=== PATIENT | male | born 1975 | race Caucasian/White ===

== ENCOUNTER 2016-08-28 11:28 | Emergency (ER) | payer OTHER ==
[~2016-08-28] VITALS: Ht 182.9 cm; Wt 80.0 kg
[2016-08-28 11:48] VITALS: Ht 182.9 cm; Wt 80.0 kg
[2016-08-28] MEDS ORDERED: KETOROLAC 30 MG INJ IM STA (14:34)
--- NOTE | 2016-08-28 15:05 | ERD ---
ER Documentation Chief Complaint Date/Time DATE: 08/28/16 TIME: 15:01 Chief Complaint LEFT KNEE PAIN X 2 WEEKS NO FALL OR INJURY PER PT HPI This is a 41-year-old male presenting to the emergency department for left knee pain and swelling 3 weeks. Patient has limited range of motion due to pain. No fall or injury. Patient has not had pain here before. No fevers or chills. No redness to knee or leg. Denies numbness or tingling. No loss of sensation. No calf swelling or tenderness. ROS All systems reviewed and are negative except as per history of present illness. Medications Home Meds Active Scripts Ibuprofen* (Motrin*) 800 Mg Tab, 800 MG PO Q6, #20 TAB Prov:RAHUL HERRERA DRAINAGE ENGINEER 08/28/16 PMhx/Soc Medical and Surgical Hx: pt denies Surgical Hx Anesthesia Reaction: No Hx Neurological Disorder: No Hx Respiratory Disorders: No Hx Cardiac Disorders: No Hx Psychiatric Problems: No Hx Miscellaneous Medical Probl: No Hx Alcohol Use: Yes (SOCIALLY) Hx Substance Use: No Hx Tobacco Use: No Smoking Status: Never smoker Physical Exam Vitals Vital Signs Date Time Temp Pulse Resp B/P Pulse Ox O2 Delivery O2 Flow Rate FiO2 08/28/16 16:37 98.1 62 18 138/77 97 Room Air 08/28/16 11:48 98.1 90 18 141/77 96 Physical Exam Const: Alert, [id number] Head: Atraumatic Eyes: Normal Conjunctiva ENT: Normal External Ears, Nose and Mouth. Neck: Full range of motion..~ No meningismus. Resp: Clear to auscultation bilaterally Cardio: Regular rate and rhythm, no murmurs Abd: Soft, non tender, non distended. Normal bowel sounds Skin: No petechiae or rashes Back: No midline or flank tenderness Ext: mild swelling to lateral and medial aspect of left knee. Limited extension and flexion. no laceration or erythema. no rashes or skin changes noted. Neur: Awake and alert Psych: Normal Mood and Affect Results 24 hrs Current Medications Medications (Trade) Dose Ordered Sig/Anna Route PRN Reason Start Time Stop Time Status Last Admin Dose Admin Ketorolac Tromethamine (Toradol) 30 mg ONCE STAT IM 08/28/16 14:34 08/28/16 14:36 DC 08/28/16 14:39 Procedures/MDM ED COURSE: The patient was stable throughout ED course. I kept the patient and/or family informed of laboratory and diagnostic imaging results throughout the ED course. Toradol given Imaging X-ray left knee Patient: JANNETH ORTIZ : 1975 Age: 41 Sex: M MR #: [id number] DOS: 08/28/16 1434 Ordering MD: RAHUL HERRERA NP Location: [facility] Room/Bed: PROCEDURE: CR Left Knee CLINICAL INDICATION: Knee pain, swelling TECHNIQUE: An AP, lateral and a tunnel view were submitted. COMPARISON: None FINDINGS: Osseous Structures: The osseous elements appear well mineralized and intact. There is a small traction spur extending superiorly off the anterior superior patella. Joint Spaces: The joint spaces are well maintained. There is a small joint effusion. Soft Tissues: The soft tissues appear unremarkable. IMPRESSION: 1. Small traction spur extending off the anterior superior patella. 2. Small joint effusion 3. Otherwise, unremarkable left knee. MDM: This is a 41-year-old male presenting to the emergency department for left knee pain and swelling 3 weeks. No injury or fall per patient. No fevers or chills. Toradol given while in ED. X-ray left knee reviewed by radiologist as small traction spur extending off the anterior superior patella. Small joint effusion. Otherwise, unremarkable left knee. Patient states pain is improved after Toradol administration. Patient was placed in kristi wrap and a knee immobilizer. Patient remains neurovascularly intact pre-and post splint application. No loss of sensation. Denies numbness or tingling. No calf pain or swelling. No fevers or chills. Low suspicion for acute dislocation, fracture, cellulitis, septic arthritis , compartment syndrome or DVT. Patient's diagnosis is knee pain. Patient is appropriate for outpatient management will be given prescription for ibuprofen instructed patient to follow-up with primary care provider in the next 24-48 hours for reassessment and additional management. Instructed patient may need orthopedic referral if symptoms persist. Return to ED for any high fever, chest pain, difficulty breathing, shortness breath, wheezing, vomiting, diarrhea, abdominal pain or any new or worsening symptoms. Patient verbalizes understanding. All questions answered at discharge. French translation use during this encounter. Departure Diagnosis: Primary Impression: Knee pain Laterality: left Chronicity: acute Qualified Code: M25.562 - Acute pain of left knee Condition: Stable RAHUL HERRERA NP Aug 28, 2016 15:05
--- NOTE | 2016-08-28 15:06 | RADRPT ---
PROCEDURE: CR Left Knee CLINICAL INDICATION: Knee pain, swelling TECHNIQUE: An AP, lateral and a tunnel view were submitted. COMPARISON: None FINDINGS: Osseous Structures: The osseous elements appear well mineralized and intact. There is a small tracti on spur extending superiorly off the anterior superior patella. Joint Spaces: The joint spaces are well maintained. There is a small joint effusion. Soft Tissues: The soft tissues appear unremarkable. IMPRESSION: 1. Small traction spur extending off the anterior superior patella. 2. Small joint effusion 3. Otherwise, unremarkable left knee. Physician Juaquin Date Time Electronically viewed and signed by Physician Juaquin on 08/28/2016 15:06 /
[2016-08-28] MEDS ORDERED: IBUP800T25 PO (16:21)
[2016-08-28 16:37] VITALS: BP 138/77; PULSE 62; RESP 18; TEMP 98.1
== END 2016-08-28 16:38 | disposition home or self-care (01) ==
LOC: FTE 11:28
DX: M25.562 Pain in left knee (principal)
CPT/HCPCS: 29505; 73562; 96372; J1885; Z7502

== ENCOUNTER → 2016-10-06 | Outpatient (CLI) | payer OTHER ==
[~2016-10-06] MED LIST: IBUP800T25 PO
--- NOTE | 2016-10-07 00:40 | HKNOTE ---
DATE OF SERVICE: 10/06/2016 REFERRING PHYSICIAN: Dr. Lorenzo Donis, [address], [address], [facility] [place] [id number]. MAIN COMPLAINT: Pain in the left knee. HISTORY OF MAIN COMPLAINT: The patient is a 41-year-old male who complains that he twisted his knee about 1-1/2 months ago while walking along and had some pain in the knee. He has had symptoms in t he knee since then. 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 Dr. Lorenzo Donis ordered an MRI scan of the left knee. The MRI w [facility] was obtained on 09/22/2016 reports as follows: "Small focus of high-grade chondral fissuring w ithin the medial eminence of the patella. Sprain versus mild mucoid degeneration of the anterior cr uciate ligament. Mild patellar tendinosis. Moderately large effusion. No discrete meniscal tear. PRESENT COMPLAINTS: The patient has constant pain in his knee. The knee feels unstable. He is not able to straighten it all the way, difficult for him to bear weight on the leg. He has been taking tramadol for the pain. He uses a cane or crutches almost all the time. He limps all the time. He can clip his toenails an d tie his shoelaces but with difficulty on the left side. PAST ORTHOPEDIC HISTORY: No previous orthopedic operations. PRIOR CORTISONE INTAKE: None. ALCOHOL INTAKE: An occasional beverage. OTHER JOINT PROBLEMS: None. BLOOD TESTS FOR ARTHRITIS: None. PRIOR INJURIES TO HIPS OR KNEES: None. WORK STATUS: The patient is a cook. PAST MEDICAL HISTORY: Hypertension. PAST SURGICAL HISTORY: Negative. MEDICAL ALLERGIES: NONE. MEDICATIONS: 1. Gemfibrozil 600 mg twice a day for hypercholesterolemia. 2. Glipizide 5 mg twice a day for diabetes. 3. Januvia 50 mg daily for diabetes. 3. Tramadol 50 mg twice a day for pain. FAMILY HISTORY: Noncontributory. Both parents are alive and well. SYSTEMS REVIEW: Gait disturbance, otherwise negative. HABITS: The patient has smoked in the past. Currently he drinks occasional alcoholic beverage. PHYSICAL EXAMINATION: GENERAL: The patient is a fit-looking and youthful 41-year-old male. He speaks no Arabic. He com es in with his Radha, who translates for him. GAIT: The patient walks with a pair of crutches. He has a marked antalgic gait without the crutche s. He walks on his tiptoe. VITAL SIGNS: Height 6 feet. Weight 210 pounds. Blood pressure 125/75, temperature 97.5. HIPS: Both hips have a full range of motion without pain. LEFT KNEE: The left knee shows normal alignment. Active and passive extension is 0 degrees. Active and passive flexion lacks 25 degrees. Tender over the medial joint line. The medial and lateral nimesh ateral ligaments and cruciate ligaments are intact. Sharmaine test is negative. There is 3+ effusion, pain on forced extension. There is no scarring, crepitus or cysts. The patella tracks normally. The re is no tenderness on the articular surface of the patella or in the patellar groove. The Q angle i s normal. RIGHT KNEE: The right knee shows normal alignment. Active and passive extension is 0 degrees. Activ e and passive flexion is 135 degrees. The medial and lateral collateral ligaments and cruciate ligam ents are intact. Sharmaine test is negative. There is no effusion, tenderness, scarring, crepitus, or cysts. The patella tracks normally. There is no tenderness on the articular surface of the patella o r in the patellar groove. The Q angle is normal. IMAGING: Plain x-rays of his right knee obtained today at the [facility] are ent irely normal. An MRI scan of the right knee obtained at [facility] on 09/22/[address] Vanesa Rucker as showin. "Small high-grade chondral fissuring of the patella. 2. Sprain versus mucoid degeneration of the anterior cruciate ligament. 3. Mild patellar tendinosis. 4. Moderate to large joint effusion. 5. Mild semimembranosus bursitis. 6. No discrete meniscal tear." MANAGEMENT: Under sterile conditions, the knee was aspirated of 80 mL of clear yellow fluid which w as not sent to the lab since there did not appear to be an indication to do so. As part of the aspiration, his knee was injected with 5 mL of 2% lidocaine. Thereafter, he had abso lutely no pain in the knee, but it was mechanically impossible to extend his knee. He has a lack of approximately 10 degrees of extension even without pain. DISCUSSION: The patient and his were advised that although the MRI scan does not show a torn m eniscus, his presentation, symptoms and clinical findings clearly indicate that he almost certainly has a torn meniscus. I advised that the MRI scan has a 5% chance of missing significant pathology or a 5% chance of seein g pathology that is not there. MANAGEMENT: The patient is advised that he will definitely need to have an arthroscopic operation o f the knee. It has been about 6 weeks now that he has been totally incapacitated. The operations and major possible complications were discussed with him and his in a fair amoun t of detail. FINAL DIAGNOSES: 1. Internal derangement of the left knee, probably a torn meniscus. 2. Hypertension. 3. Hypercholesterolemia. 4. Diabetes. The patient will need to have authorization for the surgery from his HMO. His Radha will be called as soon as authorization is received. Dictated By: NIELS LU/OBED Conf#: [id number] DID#: [id number]
== END | disposition home or self-care (01) ==
LOC: HKI 14:10
DX: M23.92 Unspecified internal derangement of left knee (principal); I10 Essential (primary) hypertension; E78.00 Pure hypercholesterolemia, unspecified; E11.9 Type 2 diabetes mellitus without complications
CPT/HCPCS: 20610; Z7500; Z7610; G0463

== ENCOUNTER → 2016-11-10 | Outpatient (CLI) | payer OTHER ==
[~2016-11-10] MED LIST changes: +GEMF600T PO; +GLIP-173 PO; +METF1000 PO
--- NOTE | 2016-11-11 05:56 | HKNOTE ---
DATE OF SERVICE: 11/10/2016 The patient comes in for preoperative evaluation. He is scheduled to have operative arthroscopy on his left knee on 11/11/2016. He continues to have very significant symptoms in his knee highly sugg estive of a torn meniscus. The MRI scan of his knee does not report clearly that there is a torn me niscus or any other explanation for his knee problem. He does not speak a word of Wolof. He comes in with his (? sister) who translates for him. I explained to both of them that there is a good chance that he may not be improved at all by the ar throscopic surgery. He has been cleared for surgery by Dr. Lorenzo Donis. Dictated By: NIELS LU/OBED Conf#: [id number] DID#: [id number]
== END | disposition home or self-care (01) ==
LOC: HKI 13:57
DX: Z01.818 Encounter for other preprocedural examination (principal); M25.562 Pain in left knee
CPT/HCPCS: G0463

== ENCOUNTER 2016-11-11 08:57 | Day surgery (SDC) | payer OTHER ==
[~2016-11-11] VITALS: Ht 185.4 cm; Wt 92.0 kg
[2016-11-11] VITALS (18 sets, daily range): BP systolic 99–146; BP diastolic 57–85; PULSE 80–106; RESP 10–20; Ht 185.4 cm; Wt 92.0 kg
[~2016-11-11 08:57] MED LIST changes: -GEMF600T PO; -GLIP-173 PO; -METF1000 PO
[2016-11-11] MEDS ORDERED: METF1000 PO (10:21)
[2016-11-11] MEDS ORDERED: GLIP-173 PO (10:21)
[2016-11-11] MEDS ORDERED: GEMF600T PO (10:21)
[2016-11-11] MEDS ORDERED: oxyCODONE (CR) 10 MG TAB [oxyCONTIN] PO ONE (10:30)
[2016-11-11] MEDS ORDERED: CELECOXIB 200 MG CAP PO ONE (10:30)
[2016-11-11] MEDS ORDERED: LANSOPRAZOLE 30 MG CAP PO ONE (10:30)
[2016-11-11] MEDS ORDERED: LACTATED RINGER'S 1,000 ML IV* SCH (10:30)
[2016-11-11] MEDS ORDERED: ACETAMINOPHEN 1000MG/100ML IV 100 ML IVPB ONE (10:30)
[2016-11-11] MEDS ORDERED: VANCOMYCIN 1 GM (PMX) 250 ML IVPB ONE (10:30)
[2016-11-11] MEDS ORDERED: ONDANSETRON 4 MG INJ IV ONE (10:30)
[2016-11-11] MEDS ORDERED: DEXAMETHASONE 4 MG/ML 1 ML INJ IV ONE (10:30)
[2016-11-11] MEDS ORDERED: EPHEDrine SULFATE 50 MG/5 ML SYG IV PRN (11:30)
[2016-11-11] MEDS ORDERED: METOCLOPRAMIDE 10 MG INJ IV PRN (11:30)
[2016-11-11] MEDS ORDERED: MEPERIDINE 25 MG INJ IV PRN (11:30)
[2016-11-11] MEDS ORDERED: ONDANSETRON 4 MG INJ IV PRN ×2 (11:30→13:30)
[2016-11-11] MEDS ORDERED: DIPHENHYDRAMINE 50 MG INJ IV PRN (11:30)
[2016-11-11] MEDS ORDERED: HYDROmorphONE (0.2 MG/ML) 10ML SYG IV PRN ×2 (11:30)
[2016-11-11] MEDS ORDERED: MIDAZOLAM 1 MG/ML 2 ML INJ IV PRN (11:30)
[2016-11-11] MEDS ORDERED: FENTAnyl 50 MCG/ML VIAL IV PRN ×2 (11:30)
[2016-11-11] MEDS ORDERED: LABETALOL HCL 20MG INJ IV PRN (11:30)
[2016-11-11] MEDS ORDERED: hydrALAzine 20 MG INJ IV PRN (11:30)
[2016-11-11] MEDS ORDERED: KETOROLAC 30 MG INJ ONE (11:37)
[2016-11-11] MEDS ORDERED: ROPIVACAINE 0.5 % 30 ML VIAL ONE (11:37)
[2016-11-11] MEDS ORDERED: morphine SULFATE/PF (10 MG/10 ML) INJ ONE (11:37)
[2016-11-11] MEDS ORDERED: BUPIVACAINE 0.25%/EPI (SDV) 30 ML INJ ONE (11:37)
--- NOTE | 2016-11-11 11:37 | HPN ---
Date/Time of Note Date/Time of Note DATE: 11/11/16 TIME: 11:37 Interval H&P Admission Note Pt. seen H&P reviewed: No system changes HYACINTH SUAREZ PA-C Nov 11, 2016 11:37
[2016-11-11] MEDS ORDERED: LIDOCAINE 2% (SDV) 5 ML INJ ONE (11:50)
[2016-11-11] MEDS ORDERED: MEPERIDINE 100 MG INJ ONE (11:50)
[2016-11-11] MEDS ORDERED: PROPOFOL 20 ML ONE (11:50)
[2016-11-11] MEDS ORDERED: morphine 10 MG INJ IV PRN (13:30)
[2016-11-11] MEDS ORDERED: ACETAMINOPHEN 1000MG/100ML IV 100 ML IVPB SCH (13:30)
[2016-11-11] MEDS ORDERED: HYDROCODONE/APAP (5/325) TAB PO PRN ×2 (13:30)
[2016-11-11] MEDS ORDERED: HYDROCODONE/APAP (10/325) TAB PO PRN (13:30)
--- NOTE | 2016-11-11 15:55 | OPR ---
DATE OF OPERATION: 11/11/2016 SURGEON: Darrick Cope MD. OCCUPATIONAL THERAPY TECHNICIAN: YOSELIN SALAS. ANESTHESIOLOGIST: Dr. Pak. PREOPERATIVE DIAGNOSIS: Internal derangement of the left knee. POSTOPERATIVE DIAGNOSES: 1. Hypermobile medial meniscus 2. Tear of the posterior horn of the lateral meniscus. 3. Softening articular cartilage of the lateral tibial plateau. 4. Prior bleeding into the knee. PROCEDURE 1. Diagnostic arthroscopy. 2. Partial medial meniscectomy. 3. Partial lateral meniscectomy. FINDINGS AT SURGERY: The patient was found to have a evidence of previous hemarthrosis throughout t he knee. The soft tissues were all stained a brownish color to suggest that there has been recurren t hemarthrosis in the knee. Some of the articular cartilage itself was stained the same color. The medial meniscus was intact and normal, except for hypermobility. The lateral meniscus showed a tear of the extreme posterior horn. The lateral tibial plateau showed quite marked softening throug h the knee and so I inserted a probe through the articular cartilage. The cruciate ligaments were i ntact. The joint surfaces otherwise appeared relatively normal. DISCUSSION: This patient was admitted for a diagnostic arthroscopy. He had significant symptoms in his knee including locking and instability. An MRI scan of the knee did not show any pathology juliano t might cause knee symptoms and I felt fairly certain that we would find significant tears of the me dial and lateral meniscus causing symptoms. It was surprising that we did not find any major pathol ogy other than what is mentioned above. DESCRIPTION OF PROCEDURE: Under general anesthetic, the left knee was prepared and draped in the [facility] sterile fashion. Standard inferomedial and inferolateral portals were used. The knee was syste matically inspected and the above findings were noted. Using a variety of basket forceps and motori Kochzauberd intraarticular shaver, a partial medial meniscectomy was performed. The camera was moved throug h the middle of the knee. The cruciate ligaments were noted to be intact to the lateral compartment . A partial lateral meniscectomy was performed on the extreme posterior horn of the lateral meniscu s. At the end of procedure, the knee was copiously irrigated to remove contained fragments. The wo unds were then closed with interrupted nylon and the usual sterile dressings were applied. The alexandra ent returned to recovery room in stable condition. Dictated By: DARRICK LU/OBED Conf#: [id number] [facility]#: [id number]
--- NOTE | 2016-11-13 08:16 | PREOPHP ---
DATE OF ADMISSION: 11/11/2016 This preop is for this 41-year-old patient whose preop is for elective left knee arthroscopy sched ed. HISTORY OF PRESENT ILLNESS: The history of the patient is the patient sustained an injury to his le ft knee approximately 2-1/2 to 3 months ago with subsequent swelling and pain and limited mobility o f his left knee. REVIEW OF SYSTEMS: Upon presentation are negative with the exception of a left knee swelling and pa in with increased swelling with standing or walking. PREOPERATIVE PHYSICAL EXAMINATION: VITAL SIGNS: Upon presentation, blood pressure is 120/80, pulse 88, temperature 97.3, weight is 207 pounds. GENERAL: His overall appearance, he is a well-developed, well-nourished male in no apparent distres s. HEENT: Within normal limits. LUNGS: Clear anterior and posteriorly. HEART: Regular rate and rhythm. S1, S2 without any gallop or murmur. ABDOMEN: Soft, nontender. There is no organomegaly present. MUSCULOSKELETAL: His left knee is swollen and has limited flexion and extension upon examination. INITIAL PREOPERATIVE LABORATORY DATA: That are available: His EKG is within normal limits. His pr eop chest x-ray is normal. There is no acute abnormality present. With this information gathered for his current preop history and physical, the patient is cleared fo r the scheduled left knee arthroscopy. Lab work is pending. That should be available prior to the scheduled surgery. SAAD GAMA DICTATING FOR NIELS GUZMAN. Dictated By: NIELS LU/OBED Conf#: [id number] DID#: [id number]
== END 2016-11-11 16:30 | disposition home or self-care (01) ==
LOC: SDS 08:57
DX: M23.252 Derangement of posterior horn of lateral meniscus due to old tear or injury, left knee (principal); M23.204 Derangement of unspecified medial meniscus due to old tear or injury, left knee; E11.9 Type 2 diabetes mellitus without complications; I10 Essential (primary) hypertension; E78.5 Hyperlipidemia, unspecified
CPT/HCPCS: 29880; 82962; J0131; J1100; J1885; J2175; J2274; J2405; J2795; J3370; J7120; Z7512; Z7610

== ENCOUNTER → 2016-11-15 | Outpatient (CLI) | payer OTHER ==
[~2016-11-15] MED LIST changes: +GEMF600T PO; +GLIP-173 PO; +METF1000 PO
--- NOTE | 2016-11-16 06:07 | HKNOTE ---
DATE OF SERVICE: 11/15/2016 SUBJECTIVE: The patient comes in for a wound check. He comes in with his who speaks Taiwanese. The patient himself does not speak any Taiwanese at all. 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 He has not be en able to work since these problems started with his knee. His work involves a great deal of his s tanding and walking. He pain is somewhat improved since the surgery. His wounds are clean and healing well. His temperature is normal. The findings at surgery were discussed with the patient and his using my zoning assistant Sandra as a auto collision repair instructor. The patient is advised that there is evidence of old bleeding into the knee. There was hypermobile medial meniscus and a small tear of the lateral meniscus. It is difficult to determine how these diagnoses all combine to cause him as much trouble with his knee as he had. All told, I am not sure that we have done him any good or improved his situation or been helpful in determining the exact cause of his problems. The dressings were changed today. The patient will return in a week's time for suture removal and c ommencement of physical therapy. Dictated By: NIELS LU/OBED Conf#: [id number] DID#: [id number]
== END | disposition home or self-care (01) ==
LOC: HKI 14:57
DX: Z48.00 Encounter for change or removal of nonsurgical wound dressing (principal); M25.562 Pain in left knee

== ENCOUNTER → 2016-11-22 | Outpatient (CLI) | payer OTHER ==
--- NOTE | 2016-11-22 15:22 | PN ---
Date/Time of Note Date/Time of Note DATE: 11/22/16 TIME: 15:18 Outpatient Progress Note Chief Complaint Left knee postop appointment status post arthroscopy on 11/11/2016. HPI 41-year-old male presents today for postoperative appointment status post diagnostic arthroscopy with partial medial and lateral meniscectomy performed on 11/11/2016. Continues with pain to the left knee status post surgery. Patient has not been applying weight to the left knee status post surgery. Continues using crutches for assisted ambulation. No at home therapy exercises performed since the surgery. Patient was also applying limited weightbearing prior to surgery, per patient's partner. Denies any fall status post surgery. Denies any complications to the wound status post surgery. Has yet to initiate any physical therapy. Review of Systems Const: No Fever, no chills, no Fatigue, normal appetite, no diaphoresis. Resp: No SOB, no wheezing, no chest pain. CV: No chest pain, no palpitaions, no GARZA. Physical Exam Blood pressure is 145/76, temperature is 98.3, pulse is 87, respiratory rate is 12, height is 6 feet 1 inch, weight is 210 pounds General Appearance: well-developed, well-nourished, in no acute distress. Left knee: Sutures are clean dry and intact. No signs of infection to the left knee. Noted atrophy to the quadriceps muscle group compared to the right lower extremity. Patient is able to flex up to 80. About 25 lag from full extension. Significant weakness at around 4-/5. Touchdown weightbearing is seen on exam with use of crutches. Normal sensory examination to light touch. No calf pain. Allergies Coded Allergies: No Known Allergy (Unverified , 11/11/16) Assessment/Plan * Suture removal performed today. Steri-Strips applied. Wound care instructions discussed. * Outpatient physical therapy prescription provided for patient today. Advised to start immediately with focus on quad strengthening, hamstring strengthening, gait training due to significant weakness. * Anti-inflammatories as needed postoperatively. * At this stage, patient may follow-up as needed. Continue with therapy. At home education information provided for patient today in regards to exercises to be performed at home to the knee. Patient may schedule repeat appointment should he experience any complications. Patient and patient's state understanding and compliance. Medications Home Meds Active Scripts Ibuprofen* (Motrin*) 800 Mg Tab, 800 MG PO Q6, #20 TAB Prov:RAHUL HERRERA aRfael CORN PRESS OPERATOR 08/28/16 Reported Medications Glipizide (Glipizide ER) 5 Mg Tab.er.24, 5 MG PO BID, TAB 11/11/16 Gemfibrozil* (Lopid*) 600 Mg Tablet, 600 MG PO BID, TAB 11/11/16 Metformin Hcl* (Metformin Hcl*) 1,000 Mg Tablet, 1000 MG PO BID, #30 TAB 11/11/16 HYACINTH SUAREZ PA-C November 22, 2016 15:22
== END | disposition home or self-care (01) ==
LOC: HKI 14:57
DX: M25.562 Pain in left knee (principal); S83.282D Other tear of lateral meniscus, current injury, left knee, subsequent encounter; S83.242D Other tear of medial meniscus, current injury, left knee, subsequent encounter

== ENCOUNTER → 2016-12-22 | Outpatient (CLI) | payer OTHER ==
--- NOTE | 2016-12-23 06:48 | HKNOTE ---
DATE OF SERVICE: 12/22/2016 The patient comes in with his , who translates for him. The patient's pain is the result of hi s surgery. He is 70% better than he was before the operation. He continues to get physical therapy and has not yet returned to work. PHYSICAL EXAMINATION: The patient walks without a walking aid. ____ LEFT KNEE: The left knee shows normal alignment. Active and passive extension is 0 degrees. Active and passive flexion is 135 degrees. The medial and lateral collateral ligaments and cruciate ligamen ts are intact. Sharmaine test is negative. There is no tenderness, scarring, crepitus, or cysts. The p atella tracks normally. There is no tenderness on the articular surface of the patella or in the pat ellar groove. The Q angle is normal. Arthroscopic portals are healed well. There is 2+ effusion. No external sign of infection or inflammation. Patient's intraoperative photographs were again reviewed with the patient through his . He has extensive arthritis. He is not yet ready to return to work. He is getting physical therapy. MANAGEMENT: Under sterile conditions, given injection of 2 mL of Kenalog and 6 mL of 2% lidocaine i nto the knee. He will be seen again in 3 weeks' time for reevaluation. Dictated By: NIELS LU/OBED Conf#: [id number] DID#: [id number]
== END | disposition home or self-care (01) ==
LOC: HKI 14:50
DX: M25.562 Pain in left knee (principal); M17.12 Unilateral primary osteoarthritis, left knee